=== PATIENT | male | born 1960 | race Caucasian/White ===

== ENCOUNTER 2018-10-15 05:46 | Day surgery (SDC) | payer OTHER ==
--- NOTE | 2018-10-13 17:09 | RAD ---
EXAM DESCRIPTION: Chest,2 Views CLINICAL HISTORY: PREOP COMPARISON: None TECHNIQUE: PA/lateral FINDINGS: There is no acute appearing cardiac or pulmonary abnormality. Heart size is normal with normal pulmonary vascularity. No pleural effusion or pneumothorax. Lungs are hyperexpanded with no consolidating infiltrate. Lateral view shows intact sternum and T-spine. IMPRESSION: No acute process is identified in the chest. Electronically signed by: Watson Ordonez MD 10/13/2018 5:06 PM [facility]
[2018-10-15] MEDS ORDERED: LACTATED RINGERS 1,000 ML ONE (06:44)
[2018-10-15] MEDS ORDERED: levoFLOXacin 500MG IV 100 ML IVPB ONE (06:44)
[2018-10-15] MEDS ORDERED: BUPIVACAINE 0.25% W/EPI 50 ML VIAL INJ ONE (07:27)
[2018-10-15] MEDS ORDERED: MIDAZOLAM INJ 2 MG/2 ML VIAL ONE (08:08)
[2018-10-15] MEDS ORDERED: fentaNYL CITRATE INJ 50 MCG/ML AMP ONE (08:08)
[2018-10-15] MEDS ORDERED: METOCLOPRAMIDE HCL INJ 10 MG/2 ML VIAL IV ONE (10:00)
[2018-10-15] MEDS ORDERED: ePHEDrine SULF 50 MG/ML IV ONE (10:00)
[2018-10-15] MEDS ORDERED: PROPOFOL 200 MG/20 ML VIAL IV ONE (10:00)
[2018-10-15] MEDS ORDERED: KETOROLAC TROMETHAMINE INJ 30 MG/ML VIAL IV ONE (10:00)
[2018-10-15] MEDS ORDERED: DEXAMETHASONE INJ 10 MG/ML VIAL IV ONE (10:00)
[2018-10-15] MEDS ORDERED: LIDOCAINE 1% 10 ML VIAL INJ ONE (10:00)
[2018-10-15] MEDS ORDERED: raNITIdine HCL INJ 25 MG/ML VIAL IV ONE (10:00)
--- NOTE | 2018-10-15 10:29 | OP ---
DATE OF PROCEDURE: 10/15/18 PREOPERATIVE DIAGNOSIS: 1. Left inguinal hernia. POSTOPERATIVE DIAGNOSIS: 1. Left inguinal hernia, direct with no indirect component. PROCEDURE: 1. Repair of left inguinal hernia with Surgimesh Plug and Patch. SURGEON: Arnaldo Chambers MD. [employer]: None. ANESTHESIA: General laryngeal mask anesthesia and local infiltration of 0.25% Marcaine with epinephrine. INDICATION: The patient is a 58-year-old male with a symptomatic left inguinal hernia. The patient was brought to the Surgical Suite today for herniorrhaphy after the risks, benefits and alternatives to the procedure were discussed and accepted. PROCEDURE: The patient was brought to the Surgical Suite and underwent general laryngeal mask anesthesia. He was prepped and draped in the usual sterile manner. He has received 500 mg of Levaquin. A surgical time-out was taken. At this point, the left lower quadrant was infiltrated with local anesthesia. An oblique incision was fashioned with a sharp knife and dissection was carried down through the skin and subcutaneous tissue to the external oblique fascia. The self-retaining retractor was placed at this level. The external oblique fascia was then opened in the direction of the fibers through the external inguinal ring. Retractor was placed at this level after the cord was dissected free from the floor or the canal and a half inch Raz drain was placed around it for traction. The cord was then explored. No indirect hernia sac was identified. The direct hernia sac was dissected free from the cord medially. When this had been identified, it was incised at its neck and reduced below the floor of the canal. Deep to the floor of the canal, tissues were wiped clean and then Surgimesh patch was introduced under the floor and sutured circumferentially with interrupted 2-0 Vicryl sutures. When this was done, the wound was irrigated with saline. Hemostasis was noted to be adequate. At this point, The Surgimesh patch was sutured around the cord in the usual manner with interrupted 2-0 Vicryl sutures. Again, the wound was irrigated with saline. The external oblique fascia was then closed with running 3-0 Vicryl suture. The cord and subcutaneous tissue above, below and lateral to the incision were infiltrated with local anesthesia. The Keny's fascia was approximated with interrupted 3-0 Chromic suture. Skin edges were approximated with skin stapler. Sterile pressure dressing was applied. The testicle was checked for position in the scrotum. The patient was awakened and taken to the Recovery Room in good and stable condition. Estimated blood loss was less than 50 mL. All sponge, needle and instrument counts were correct. #[id number] [facility]
[2018-10-15 11:49] VITALS: BP 118/75; TEMP 97.5; O2SAT 99
== END 2018-10-15 11:50 | disposition home or self-care (01) ==
LOC: AMB 05:46
PROVIDERS: ATTEND Surgery
DX: K40.90 Unilateral inguinal hernia, without obstruction or gangrene, not specified as recurrent (principal); G89.29 Other chronic pain; M54.9 Dorsalgia, unspecified; F17.290 Nicotine dependence, other tobacco product, uncomplicated; Z88.2 Allergy status to sulfonamides; Z88.0 Allergy status to penicillin; Z79.899 Other long term (current) drug therapy
CPT/HCPCS: 00830; 49505; 71046; 80048; 81001; 85025; 93005; C1781; J1100; J1885; J1956; J2250; J2765; J2780; J3010; J3490; J7120